=== PATIENT | male | born 1975 | race Caucasian/White ===

== ENCOUNTER → 2020-06-22 13:15 | Outpatient (BNVA) | payer MEDICARE, MEDICAID, SELFPAY | PROVIDERS: PCP Nurse Practitioner Family; Referring Provider Nurse Practitioner Family; Visit Provider Specialist | DX: G23.8 Other specified degenerative diseases of basal ganglia (principal); R56.9 Unspecified convulsions; R26.9 Unspecified abnormalities of gait and mobility | CPT/HCPCS: 99205 ==

== ENCOUNTER 2020-07-08 12:43 | Outpatient (CLI) | payer MEDICARE, MEDICAID, SELFPAY ==
--- NOTE | 2020-07-08 12:52 | CT_ITS ---
WS: [id number] CT HEAD NONCONTRAST HISTORY: R56.9 - Unspecified convulsions TECHNIQUE: Contiguous axial imaging performed through the brain in 2.5 mm imaging. Bone and soft tiss ue windows. Sagittal and coronal reformats reviewed. All CT scans at [facility] use at le ast one of these dose optimization techniques: automated exposure control; mA and/or kV adjustment pe r patient size (includes targeted exams where dose is matched to clinical indication); or iterative r econstruction. DLP: 925.91 mGycm COMPARISON: None available. No acute intracranial hemorrhage is identified. There are numerous brain calcifications bilaterally. Extensive calcifications within the basal ganglia and thalami. There are additional scattered subcort ical and interhemispheric falx calcifications. There are also scattered punctate calcifications withi n the cerebellum bilaterally. By history patient knows about these calcifications. No prior studies f or comparison. No significant atrophy. No mass effect or midline shift. Ventricles: Normal size with no hydrocephalus. Paranasal sinuses: As visualized are clear. Mastoid air cells: Well pneumatized. Calvarium and scalp: Skull is intact with no soft tissue edema or swelling. CT/CT head wo con* [id number] IMPRESSION: 1. Extensive bilateral intracranial calcifications. Largest burden within the basal ganglia and the thalami. Additional smaller punctate calcifications in th e subcortical white matter and bilateral cerebellum. By history patient has und ergone prior whole brain radiation and these calcifications are thought to be dystrophic. No prior studies for comparison. Patient is aware of these calcific ations from prior outside brain imaging. Differential would include hypothyroid ism, tuberous sclerosis and Fahr disease. 2. No acute intracranial findings.
== END 2020-07-08 12:44 | disposition home or self-care (01) ==
PROVIDERS: PCP Nurse Practitioner Family; Visit Provider Specialist
DX: R51.9 Headache, unspecified (principal); R56.9 Unspecified convulsions
CPT/HCPCS: 70450; 95816; 96372; J1885

== ENCOUNTER → 2020-09-20 14:38 | Outpatient (BNVA) | payer OTHER, MEDICAID, SELFPAY | PROVIDERS: PCP Nurse Practitioner Family; Visit Provider Specialist | DX: R56.9 Unspecified convulsions (principal); R26.9 Unspecified abnormalities of gait and mobility; G23.8 Other specified degenerative diseases of basal ganglia | CPT/HCPCS: 99214 ==

== ENCOUNTER → 2021-06-01 10:23 | Outpatient (BNVA) | payer OTHER, MEDICAID, SELFPAY | PROVIDERS: PCP Nurse Practitioner Family; Visit Provider Specialist | DX: R29.90 Unspecified symptoms and signs involving the nervous system (principal) | CPT/HCPCS: 36415; 83516; 83519 ==

== ENCOUNTER 2021-07-28 08:16 | Outpatient (CLI) | payer OTHER, MEDICAID, SELFPAY ==
--- NOTE | 2021-07-28 08:45 | MR_ITS ---
WS: [id number] MRI HEAD WITHOUT CONTRAST TECHNIQUE: Sagittal T1, T2 axial, T2 axial FLAIR, axial and coronal T1 images, axial susceptibility w eighted imaging, axial diffusion weighted images, and coronal T2 images were obtained. Unable to obta in IV access. Patient refused additional attempts. Contrast not administered. CLINICAL INFORMATION: R29.90 - Unspecified symptoms and signs involving the ner... COMPARISON: Outside examinations MRI and CTA 04/15/[address] 07/08/2020 FINDINGS: Previously described enhancing meningioma along the mesial LEFT temporal lobe involving the cavernous sinus not as well evaluated today without contrast. This appears stable compared to the pr ior contrast enhanced examination April 15, 2021. This involves the lateral aspect of the cavernous s inus. Meningioma abuts the traversing LEFT cavernous carotid artery which remains patent. This involv es the superior aspect of Meckel's cave better seen on the outside imaging with contrast. This likely involve the traversing trigeminal nerve rootlets in Meckel's cave. Meningioma directly abuts the mark la without direct parasellar invasion. Mild mass effect on the mesial temporal lobe. No significant u nderlying edema. No evidence of restricted diffusion to suggest acute ischemia. Ventricular system and basal cisterns are patent. Normal posterior fossa. Normal vascular flow voids at the skull base. No extra-axial flui d collections. Paranasal sinuses and mastoid air cells are well aerated. Normal posterior nasopharynx . Normal parapharyngeal fat. Visualized orbits are normal. Chronic calcifications within the bilateral basal ganglia and thalamus better evaluated on the prior CT. Associated susceptibility artifact in these areas today. This has a long-standing appearance. Moderate periventricular symmetric appearing white matter changes extending into the purvis radiata. Small focus of T2 abnormality within the RIGHT thalamus. Findings are nonspecific in a patient this a ge but can be seen with prior infectious or inflammatory etiologies. Also consider prior radiation th erapy. Normal optic chiasm and pituitary infundibulum. Temporal lobes and hippocampal formations are otherwi se normal in appearance. MR/MR head wo con* [id number] IMPRESSION: 1. LEFT parasellar meningioma appears stable compared to the outside imaging t hrough 04/15/21. Contrast not administered due to inability to obtain IV access. Regardless this appears unchanged considering limitations. 2. Parasellar meningioma involves the cavernous sinus and abuts the traversing cavernous carotid artery which remains patent. No evidence of invasion of the sella directly. Mild mass effect on the mesial temporal lobe appears unchanged. No significant underlying edema. 3. Stable periventricular white matter changes with mild parenchymal volume lo ss nonspecific in a patient this age but can be seen with prior infectious or i nflammatory or possibly radiation therapy 4. Extensive Bilateral basal ganglia and thalamic calcifications are unchanged . This appears long-standing and can be seen with prior TORCH infection, toxic/ metabolic/endocrine disorder, prior radiation chemotherapy, and less likely Fah r's disease.
== END 2021-07-28 08:17 | disposition home or self-care (01) ==
LOC: RAD 08:18
PROVIDERS: PCP Nurse Practitioner Family; Visit Provider Specialist
DX: R29.90 Unspecified symptoms and signs involving the nervous system (principal); D32.0 Benign neoplasm of cerebral meninges; G23.8 Other specified degenerative diseases of basal ganglia
CPT/HCPCS: 70551

== ENCOUNTER → 2021-11-07 08:09 | Outpatient (BNVA) | payer MEDICARE, SELFPAY | PROVIDERS: PCP Family Medicine; Visit Provider Specialist | DX: D32.9 Benign neoplasm of meninges, unspecified (principal); R56.9 Unspecified convulsions; G23.8 Other specified degenerative diseases of basal ganglia; R26.89 Other abnormalities of gait and mobility | CPT/HCPCS: 99213 ==

== ENCOUNTER → 2022-11-07 08:05 | Outpatient (BNVA) | payer MEDICARE, SELFPAY | PROVIDERS: PCP Family Medicine; Visit Provider Specialist | DX: D32.9 Benign neoplasm of meninges, unspecified (principal); R29.90 Unspecified symptoms and signs involving the nervous system; G25.3 Myoclonus; R56.9 Unspecified convulsions; G23.8 Other specified degenerative diseases of basal ganglia; R26.9 Unspecified abnormalities of gait and mobility | CPT/HCPCS: 99214 ==

== ENCOUNTER 2022-12-05 09:19 | Outpatient (CLI) | payer MEDICARE, SELFPAY ==
--- NOTE | 2022-12-05 09:30 | MR_ITS ---
WS: [id number] MRI BRAIN WITH AND WITHOUT CONTRAST HISTORY: D32.9 - Benign neoplasm of meninges, unspecified COMPARISON: 07/28/2021, 04/15/2021, TECHNIQUE: Multiplanar imaging performed through the brain with MultiHance 16 ml's IV. Previously described enhancing dumbbell shaped mass along the medial LEFT temporal lobe is reidentifi ed. Mass extends into the cavernous sinus and towards the apex of the LEFT orbit. Mass extends into t he superior orbital fissure and abuts the expected location of the intracranial segment of the 2nd cr anial nerve. There is slight mass effect and midline shift of the carotid artery. Diffuse and moderat tete intensely enhancing mass abuts the LEFT cavernous carotid artery which remains patent. There is e xtension into Meckel's cave with effacement of fat. The mass has increased in size since the prior ex amination and there is significant amount of edema surrounding the mass. Mass measures 2.9 cm transve rsely 1.7 cm anterior posterior and 1.9 cm superior-inferior. There is significant amount of edema no w present within the medial LEFT temporal lobe which was not present on the prior study. Mild effacem ent of the sulci in the medial LEFT temporal lobe. Diffusion imaging is normal. No restricted diffusion to suggest acute ischemia. Normal sized ventricl es. Reidentified are chronic calcifications within the basal ganglia and thalamus. Better noted on a prior CT. The periventricular symmetric white matter changes in the purvis radiata are similar to burak or studies. No new areas of atrophy. No new enhancing mass. Pituitary gland remains midline. The opti c chiasm and the infundibulum are normal. Paranasal sinuses: Well aerated with no significant disease. Mastoid air cells: Normal. Calvarium and scalp: Normal. IMPRESSION: 1. Enlarging LEFT parasellar, extra-axial mass with increasing mass effect and white matter edema. P reviously described LEFT parasellar meningioma is now encroaching upon the superior orbital fissure a nd cranial nerve II and the cavernous carotid artery. Mass now measures 2.9 x 1.7 x 1.9 cm. New signi ficant amount of surrounding edema in the LEFT temporal lobe. With progression of symptoms may need t o be evaluated by neurosurgery. 2. No acute infarct. 3. Stable periventricular white matter changes. Bilateral basal ganglia and thalamic calcifications are unchanged. As noted on prior study may be related to prior infection or chemotherapy.
[2022-12-05] MEDS: gadobenate dimeglumine 20 mL vial IV (10:26)
== END 2022-12-05 09:20 | disposition home or self-care (01) ==
LOC: RAD 09:19
PROVIDERS: PCP Family Medicine; Visit Provider Specialist
DX: D32.0 Benign neoplasm of cerebral meninges (principal); G93.6 Cerebral edema
CPT/HCPCS: 70553; A9577

== ENCOUNTER 2023-04-24 16:06 | Outpatient (CLI) | payer MEDICARE, SELFPAY ==
--- NOTE | 2023-04-24 16:00 | MR_ITS ---
WS: [id number] MRI HEAD WITHOUT CONTRAST TECHNIQUE: Sagittal T1, T2 axial, T2 axial FLAIR, axial and coronal T1 images, axial susceptibility w eighted imaging, axial diffusion weighted images, and coronal T2 images were obtained. CLINICAL INFORMATION: D32.9 - Benign neoplasm of meninges, unspecified COMPARISON: 12/05/2022 FINDINGS: Some images degraded by patient motion. Patient refused IV contrast. Exam done without gado linium. No evidence of restricted diffusion to suggest acute ischemia. Ventricular system basilar cisterns ar e patent. Moderate small vessel changes. Mild parenchymal volume loss. Normal posterior fossa. Normal vascular flow voids at the skull base. No extra-axial fluid collections. Paranasal sinuses and masto id air cells are well aerated. Normal posterior nasopharynx. Tiny chronic lacunar infarct posterior l imb RIGHT internal capsule. Bilateral basal ganglia and thalamic calcifications are unchanged. Suboptimal evaluation of the LEFT parasellar meningioma without gadolinium. Again seen is involvement of the cavernous sinus with meningioma directly abutting the cavernous carotid artery. Mass effect o n the mesial temporal lobe with underlying edema. Surrounding edema is similar in appearance compared to 12/05/2022 and does not appear significantly progressed. Meningioma extends to the orbital apex a nd encroaches on the superior orbital fissure. Associated extension into Meckel's cave with mass effe ct on the mesial temporal lobe with associated edema. Involvement of foramen ovale with perineural en hancement visualized on the prior examination along CN V3. Associated extension along the mesial temp oral lobe and middle cranial fossa. Crowding of the optic nerve at the orbital apex. Today this measu res approximately 2.9 x 1.6 x 1.9 cm not significantly changed compared to previous. IMPRESSION:Some images degraded by patient motion. Patient refused IV contrast. Exam done without ruthy olinium. 1. LEFT parasellar meningioma detailed above appears relatively stable compared to 12/05/2022 consid ering limitations 2. Similar-appearing edema within the LEFT anterior temporal lobe and mesial temporal lobe. 3. 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 Crowding of the optic nerve at the orbital apex. Involvement of foramen ovale and CNV3. Recommen d neurosurgery evaluation. 4. No other significant interval changes
== END 2023-04-24 16:07 | disposition home or self-care (01) ==
LOC: RAD 16:06
PROVIDERS: PCP Family Medicine; Visit Provider Specialist
DX: D32.0 Benign neoplasm of cerebral meninges (principal); G93.6 Cerebral edema
CPT/HCPCS: 70551

== ENCOUNTER → 2023-11-07 08:00 | Outpatient (BNVA) | payer MEDICARE, SELFPAY | PROVIDERS: PCP Family Medicine; Visit Provider Specialist | DX: D32.9 Benign neoplasm of meninges, unspecified (principal); R29.90 Unspecified symptoms and signs involving the nervous system; G25.3 Myoclonus; R56.9 Unspecified convulsions; G23.8 Other specified degenerative diseases of basal ganglia; R26.9 Unspecified abnormalities of gait and mobility | CPT/HCPCS: 99214 ==

== ENCOUNTER 2024-10-31 15:47 | Outpatient (CLI) | payer MEDICARE, SELFPAY ==
--- NOTE | 2024-10-31 16:00 | MR_ITS ---
WS: [id number] MRI BRAIN WITHOUT CONTRAST HISTORY: D32.9 - Benign neoplasm of meninges, unspecified COMPARISON: 04/24/2023, 12/05/2022, 07/28/2021 TECHNIQUE: Diffusion imaging, multiplanar T1, T2 and FLAIR imaging obtained. Patient has refused post gadolinium imaging. Normal diffusion imaging. No acute ischemia. Mild parenchymal volume loss and moderate small vessel changes are very similar to the prior study. Patient has a known LEFT parasellar meningioma which is reidentified. This meningioma is in the medial LEFT temporal fossa abutting with mass effect upon the mesial temporal lobe and extension into the cavernous carotid sinus and abutting the carotid artery. There is a moderate amount of surrounding edema which is very similar to the prior study. Edema extends into the temporal lobe. As noted on the prior examination the meningioma extends to the orbital apex and the superior orbital fissure. There is extension into Meckel's cave. Meningioma measures 3.0 x 1.5 x 1.7 cm. Reidentified is increased T1 signal in the basal ganglia and thalami. Calcifications noted on a prior noncontrast CT. Normal ventricles. No hydrocephalus. No inferior displacement of cerebellar tonsils. The sella turcica and pituitary gland are unremarkable. Limited evaluation of the vascular structures. There is mass effect upon the LEFT carotid artery in the cavernous sinus. Paranasal sinuses: Clear. Mastoid air cells: Normal. Calvarium and scalp: Intact. MR/MR head wo con* [id number] IMPRESSION: 1. Known LEFT parasellar meningioma is very similar in appearance to the most recent exams. Patient refused IV contrast limiting complete evaluation of the m eningioma. Meningioma does extend into the LEFT cavernous sinus and Meckel's ca ve with contact on the orbital nerve at the orbital apex. 2. Edema surrounding the meningioma in the anteromedial LEFT temporal lobe is very similar to the prior study. 3. Increased T1 signal in the basal ganglia and thalami. This can be seen with toxic/metabolic syndrome, prior infection and Fahr's disease.
== END 2024-10-31 15:48 | disposition home or self-care (01) ==
LOC: RAD 15:51
PROVIDERS: PCP Family Medicine; Visit Provider Specialist
DX: D32.9 Benign neoplasm of meninges, unspecified (principal); G23.8 Other specified degenerative diseases of basal ganglia
CPT/HCPCS: 70551

== ENCOUNTER → 2024-12-10 10:26 | Outpatient (BNVA) | payer MEDICARE, SELFPAY | PROVIDERS: PCP Family Medicine; Visit Provider Specialist | DX: G40.909 Epilepsy, unspecified, not intractable, without status epilepticus (principal); G23.8 Other specified degenerative diseases of basal ganglia; R26.9 Unspecified abnormalities of gait and mobility; R03.0 Elevated blood-pressure reading, without diagnosis of hypertension | CPT/HCPCS: 99214 ==